=== PATIENT | male | born 1955 ===

== ENCOUNTER 2024-07-29 14:13 | Emergency (ER) | payer OTHER ==
[2024-07-29] MEDS ORDERED: NA CHLORIDE 0.9% 1,000 ML ONE ×2 (14:54→15:36)
[2024-07-29] MEDS ORDERED: ONDANSETRON 4 MG/2 ML VIAL ONE (14:54)
[2024-07-29 15:16] LABS: Absolute Basophils 0.1 K/uL (0-0.5); Absolute Eosinophils 0.1 K/uL (0-0.5); Absolute Lymphocytes (CBC) 2.1 K/uL (0.7-4.9); Absolute Monocytes 1.1 K/uL (0.1-1.3); Absolute Neutrophil 8.2 K/uL (1.8-8.0); Hematocrit 32.8 % (39.6-49.0); Hemoglobin 11.1 g/dL (13.6-17.9); Lymphocytes % 17.9 % (15.3-44.8); MCH 29.8 pg (27.0-35.0); MCHC 33.8 g/dL (32.0-36.0); MCV 88.4 fL (80-100); MPV 8.1 fL (7.6-11.3); Monocytes % 9.2 % (3.3-12.3); Neutrophils % 70.9 % (41.7-73.7); Platelets 460 thou/uL (152-406); RBC Red Blood Cell Count 3.71 M/uL (4.33-5.43)
[2024-07-29 15:22] LABS: Albumin 2.9 g/dL (3.4-5.0); Albumin/Globulin Ratio 0.6 (1.1-1.8); Anion Gap 13.6 mEq/L (5.0-15.0); Bilirubin Total 0.6 mg/dL (0.2-1.0); Globulin 4.5 g/dL (2.3-3.5); Magnesium 1.7 mg/dL (1.6-2.4); Potassium 4.6 mEq/L (3.5-5.1); Protein, Total 7.4 g/dL (6.4-8.2); Troponin High Sensitivity 6.7 pg/mL (<58.9)
--- NOTE | 2024-07-29 15:28 | RAD REPORT ---
EXAMINATION: ONE VIEW CHEST XR CLINICAL INDICATION: syncope TECHNIQUE: Frontal chest projection is submitted. Examination is limited by patient positioning and t echnique. COMPARISON: No prior exam. FINDINGS: Diffuse COPD is present. Opacity is present in the left hilar/suprahilar region which could represent a mass or infiltrate. Lungs otherwise clear. The heart is upper limit normal in size. CT chest may be useful for further workup.
[2024-07-29 15:46] LABS: PT Prothrombin Time 12.9 SECONDS (10-13.0); Protime INR 1.14
[2024-07-29] MEDS ORDERED: NA CHLORIDE 0.9% 50 ML ONE (15:57)
[2024-07-29] MEDS ORDERED: CEFTRIAXONE 1000 MG/VIAL ONE (15:57)
[2024-07-29] MEDS ORDERED: NA CHLORIDE 0.9% 250 ML ONE (15:57)
[2024-07-29] MEDS ORDERED: AZITHROMYCIN 500 MG INJ IVPB ONE (15:57)
[2024-07-29 16:03] LABS: PTT, Activated Partial Thromb 30.9 SECONDS (27.2-37.4)
--- NOTE | 2024-07-29 16:56 | RAD REPORT ---
EXAM: CT brain without contrast HISTORY: SYNCOPE COMPARISON: None TECHNIQUE: Multiple contiguous axial images were obtained and a CT of the brain without contrast. Sag ittal and coronal reformats were performed. One or more of the following dose reduction techniques were used: Automated exposure control, adjust ment of the mA and/or kV according to patient size, and/or iterative reconstruction. FINDINGS: No evidence of hydrocephalus, intracranial hemorrhage, or extra-axial fluid collection. Moderate brain atrophy with mild periventricular and deep white matter chronic microvascular ischemi c changes present. Vertebral atherosclerosis. No evidence of midline shift or areas of brain edema. The calvarium is intact. The visualized paranasal sinuses and mastoid air cells are essentially clear . IMPRESSION: No evidence of acute intracranial abnormality.
--- NOTE | 2024-07-29 17:08 | RAD REPORT ---
EXAM: CTA of the chest, abdomen and pelvis HISTORY: Chest pain and back pain syncope COMPARISON: None TECHNIQUE: Multiple contiguous axial images were obtained a CTA of the chest and abdomen with contras t per aortic dissection protocol. This involves 3D reconstructions, MIPs, volume rendered images and/or shaded surface rendering. One or more of the following dose reduction techniques were used: Au tomated exposure control, adjustment of the mA and/or kV according to patient size, and/or iterative reconstruction. Unless otherwise specified, incidental findings do not require dedicated im aging follow-up. Sagittal and coronal 3-D MIP reformats were performed. FINDINGS: Mild COPD is present. There is a thick-walled air and fluid collection in the medial left lung base m easuring 5 x 4 cm which may represent an cavitary mass or intrapulmonary abscess. Cavitary malignancy is favored, however. There is irregular left hilar lymph node present measuring 2 cm. No pulmonary embolism seen. Aortic arch is normal caliber. There is a large irregular abdominal aortic aneurysm measuring 11-12 cm in length and up to 10 cm in transverse dimension. The SMA, renal arteries, NATA appear to originate from the aneurysm. No active contrast leakage is seen from the aneurysm. 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 No evidence of aortic dissection. No acute solid organ abnormality. No significant free fluid, free air or bowel obstruction. IMPRESSION: Very large abdominal aortic aneurysm as detailed.Consultation with vascular specialist recommended. 5 x 4 cm thick-walled air and fluid containing lesion in the left lung base could represent cavitary mass or secondary to infection/intrapulmonary abscess. Malignancy is favored, however. There is a 2 cm irregular left hilar lymph node. The findings were communicated with Dr. Buckley at 07/29/2024 5:06 PM by telephone.
--- NOTE | 2024-07-29 17:11 | ER ---
Nurse's Notes [facility] Name: Carroll Canseco Age: 69 yrs Sex: Male : 1955 Arrival Date: 07/29/2024 Time: 14:13 Bed 13 Private MD: Diagnosis: Syncope;Pneumonia due to other specified infectious organisms;Abdominal aortic aneurysm, without rupture;Dizziness and giddiness Presentation: 07/29 14:22 Chief complaint: Patient states: really dizzy since 0900 , he fell when he tried to get iw up, he feels like he is going black out sometimes, denies n/v/d , no fever or chills, feels cold, he has had no appetite for 2-3 weeks not eating much. Coronavirus screen: At this time, the client does not indicate any symptoms associated with coronavirus-19. Ebola Screen: No symptoms or risks identified at this time. 14:22 Method Of Arrival: Wheelchair iw 14:22 Acuity: [place] 2 iw 14:46 Onset of symptoms is unknown. ap3 14:46 Initial Sepsis Screen: Does the patient meet any 2 criteria? No. Patient's initial ap3 sepsis screen is negative. Does the patient have a suspected source of infection? No. Patient's initial sepsis screen is negative. Risk Assessment: Do you want to hurt yourself or someone else? Patient reports no desire to harm self or others. Historical: - Allergies: 18:07 No Known Allergies; ap3 - PMHx: 14:36 Cerebrovascular accident; Hypertensive disorder; iw - Immunization history:: Adult Immunizations up to date. - Infectious Disease History:: Denies. - Social history:: Smoking status: unknown. Screenin:43 [facility] ED Fall Risk Assessment (Adult) History of falling in the last 3 months, ap3 including since admission Yes- fall prone (multiple falls) (3 pts) Confusion or Disorientation No (0 pts) Intoxicated or Sedated No (0 pts) Impaired Gait No (0 pts) Mobility Assist Device Used No (0 pt) Altered Elimination No (0 pt) Score/Fall Risk Level 3 or more points = High Risk Oriented to surroundings, Maintained a safe environment, Educated pt \T\ family on fall prevention, incl call for assistance when getting out of bed, Provided non-skid footwear, Hourly rounding (assess needs \T\ fall precautionary measures) done, Apply high fall risk patient identification: yellow non skid footwear/ fall signage, Remained w/in arm's length of patient and in sight while toileting, Offered frequent toileting (1:1 observation), Remained with patient while ambulating. Abuse screen: Denies threats or abuse. Nutritional screening: No deficits noted. Tuberculosis screening: No symptoms or risk factors identified. Assessment: 14:45 General: Appears uncomfortable, Behavior is cooperative, appropriate for age. Pain: ap3 Complains of pain in low back area Is chronic. Neuro: Level of Consciousness is awake, alert, obeys commands, Oriented to person, place, time, situation, Appropriate for age. Neuro: Reports a syncopal episode weakness. Cardiovascular: Patient's skin is warm and dry. Respiratory: Airway is patent Respiratory effort is even, unlabored, Respiratory pattern is regular, symmetrical. 17:15 Reassessment: Patient and/or family updated on plan of care and expected duration. Pain ap3 level reassessed. Patient is alert, oriented x 3, equal unlabored respirations, skin warm/dry/pink. 17:42 General: patient states he wishes to not be resuscitated or intubated. provider aa5 notified. . 17:50 General: report given to emily moore at [facility]. ap3 Vital Signs: 14:22 Pulse 80; Resp 19; Pulse Ox 95% on R/A; Weight 58.97 kg; Height 5 ft. 11 in. ; iw 14:44 BP 114 / 77; Pulse 73; Resp 19; Pulse Ox 97% on R/A; ap3 15:08 BP 113 / 86; Pulse 72; Pulse Ox 97% on R/A; ap3 15:37 BP 112 / 97; Pulse 67; Resp 18; Pulse Ox 96% on R/A; ap3 15:46 BP 104 / 67; Pulse 67; Resp 18; ap3 16:35 BP 121 / 90; Pulse 69; Resp 17; Temp 98.1; Pulse Ox 100% on R/A; ap3 18:08 BP 126 / 87; Pulse 73; Resp 17; Pulse Ox 100% on R/A; ap3 14:22 Body Mass Index 18.13 (58.97 kg, 180.34 cm) iw ED Course: 14:16 Patient arrived in ED. gl 14:19 Nav Cavazos PA is PHCP. cp 14:19 Tenzin Buckley MD is Attending Physician. cp 14:24 Triage completed. iw 14:35 Arm band placed on. iw 14:42 Beverley Zacarias, RN is Primary Nurse. ap3 14:43 Patient has correct armband on for positive identification. Placed in gown. Call light ap3 in reach. Side rails up X2. Client placed on continuous cardiac and pulse oximetry monitoring. NIBP monitoring applied. hand zipper trimmer on. Pulse ox on. NIBP on. Door closed. Noise minimized. Warm blanket given. 14:43 EKG done, by ED staff, reviewed by Nav PRADO. ap3 14:46 Provided Education on: fall risk education . ap3 15:14 Chest Single View XRAY In Process Unspecified. EDMS 16:50 CT Head Brain wo Cont In Process Unspecified. EDMS 16:50 CT Aorta for Dissection In Process Unspecified. EDMS 17:07 1707 called [facility] for transfer talked to Brigitte Echavarria. 1731 Dr. Ricky Green accepted pt 1731 Brigitte Echavarria admin approval to [id number] report [phone]. 1738 Called [facility] talked to Yoseph. will be here in 20 minutes. 18:06 No provider procedures requiring assistance completed. Patient transferred, IV remains ap3 in place. Administered Medications: 15:00 Drug: NS 0.9% IV 1000 ml IV at 1000 ml once; to be given as a bolus over 60 minutes ap3 Route: IV; Rate: 1000 ml; Site: right forearm; 15:45 Follow up: IV Status: Completed infusion; IV Intake: 1000ml ap3 15:00 Not Given (Patient Refused): ondansetron 4 mg IVP once; over 2 minutes ap3 15:45 Drug: NS 0.9% IV (30 ml/kg) 30 ml/kg IV at bolus once; Sepsis Protocol; give over 90 ap3 min for total 1770 ml Route: IV; Rate: bolus; Site: left forearm; 16:41 Follow up: IV Status: Completed infusion; IV Intake: 800ml ap3 16:25 Drug: Rocephin IV 1 grams IV at calculated rate once; Given slow IV push per pharmacy ap3 instructions Route: IV; Rate: calculated rate; Site: right forearm; 16:41 Follow up: IV Status: Completed infusion; IV Intake: 50ml ap3 18:05 Not Given (changed to PO per providerr): [id number] mg IVPB once over 1 hrs; mix in ap3 250 mL NS 18:05 Drug: AZITHromycin PO 500 mg PO once Route: PO; ap3 18:05 Follow up: Response: No adverse reaction ap3 Medication: 14:46 VIS not applicable for this client. ap3 Point of Care Testing: Blood Glucose: 14:35 Blood Glucose: 89 mg/dL; iw Ranges: Intake: 15:45 IV: 1000ml; Total: 1000ml. ap3 16:41 IV: 800ml; Total: 1800ml. ap3 16:41 IV: 50ml; Total: 1850ml. ap3 Outcome: 17:10 ER care complete, transfer ordered by . 18:06 Transferred by helicopter to [facility], ap3 18:06 Condition: stable 18:06 Instructed on the need for transfer, 18:09 Patient left the ED. ap3 Signatures: Dispatcher [employer] EDMS Norma Multani Irene, RN RN iw Gia Cruz RN RN aa5 Nav Cavazos PA PA Beverley Sullivan RN RN ap3 Yen Coats, Reg Reg gl
--- NOTE | 2024-07-29 17:11 | EDPHYS ---
Physician Documentation [facility] Name: Carroll Canseco Age: 69 yrs Sex: Male : 1955 Arrival Date: 07/29/2024 Time: 14:13 Bed 13 Private MD: ED Physician Tenzin Buckley HPI: 07/29 14:30 This 69 yrs old Male presents to ER via Wheelchair with complaints of Dizziness, Passed cp Out Prior To Arrival. 14:30 The patient presents with dizziness, feeling faint, lightheadedness. Onset: The cp symptoms/episode began/occurred gradually, 1 month(s) ago. Associated signs and symptoms: Pertinent positives: confusion, near-syncope, syncope, Pertinent negatives: abdominal pain, chest pain, headache. Severity of symptoms: in the emergency department the symptoms have improved mildly. Patient's baseline: The patient has a previous history of CVA. Historical: - Allergies: 18:07 No Known Allergies; ap3 - PMHx: 14:36 Cerebrovascular accident; Hypertensive disorder; iw - Immunization history:: Adult Immunizations up to date. - Infectious Disease History:: Denies. - Social history:: Smoking status: unknown. ROS: 14:33 Constitutional: Positive for weight loss, Negative for body aches, chills, fever, cp 14:33 Eyes: Negative for injury, pain, redness, and discharge, cp 14:33 ENT: Negative for drainage from ear(s), ear pain, sore throat, difficulty swallowing, difficulty handling secretions, 14:33 Cardiovascular: Negative for chest pain, edema, palpitations, 14:33 Respiratory: Negative for cough, shortness of breath, wheezing, 14:33 Abdomen/GI: Positive for nausea, anorexia, Negative for abdominal pain, vomiting, diarrhea, constipation, black/tarry stool, rectal bleeding, 14:33 Back: Positive for low back pain, cp 14:33 : Negative for urinary symptoms, testicular pain cp 14:33 Neuro: Positive for dizziness, syncope, near syncope, Negative for seizure activity, 14:33 All other systems are negative, Exam: 14:37 Constitutional: The patient appears in no acute distress, alert, awake, cp non-diaphoretic, non-toxic, well developed, well nourished, 14:37 Head/Face: Normocephalic, atraumatic. cp 14:37 Eyes: Periorbital structures: appear normal, Pupils: equal, round, and reactive to cp light and accomodation, Extraocular movements: intact throughout, Conjunctiva: normal, no exudate, no injection, Sclera: no appreciated abnormality, Lids and lashes: appear normal, bilaterally, 14:37 ENT: External ear(s): are unremarkable, Nose: is normal, Mouth: Lips: moist, Oral mucosa: moist, Posterior pharynx: Airway: no evidence of obstruction, patent, 14:37 Neck: ROM/movement: is normal, is supple, without pain, no range of motions limitations, no nuchal rigidity, 14:37 Chest/axilla: Inspection: normal, 14:37 Cardiovascular: Rate: normal, Rhythm: regular, Edema: is not appreciated, JVD: is not appreciated, 14:37 Respiratory: the patient does not display signs of respiratory distress, Respirations: normal, no use of accessory muscles, no retractions, labored breathing, is not present, Breath sounds: decreased breath sounds, that are mild, throughout, 14:37 Abdomen/GI: Inspection: abdomen appears normal, Palpation: abdomen is soft and non-tender, in all quadrants, 14:37 Back: pain, that is moderate, low back, ROM is normal, 14:37 Skin: cellulitis, is not appreciated, no rash present. 14:37 Neuro: Orientation: to person, situation, day of week. Mentation: able to follow commands, slow to respond, Cerebellar function: Romberg testing is negative, normal finger to nose testing, heel to aponte testing is normal, Motor: moves all fours, no focal deficits, Sensation: no obvious gross deficits, 14:38 ECG was reviewed by the Attending Physician. cp Vital Signs: 14:22 Pulse 80; Resp 19; Pulse Ox 95% on R/A; Weight 58.97 kg; Height 5 ft. 11 in. ; iw 14:44 BP 114 / 77; Pulse 73; Resp 19; Pulse Ox 97% on R/A; ap3 15:08 BP 113 / 86; Pulse 72; Pulse Ox 97% on R/A; ap3 15:37 BP 112 / 97; Pulse 67; Resp 18; Pulse Ox 96% on R/A; ap3 15:46 BP 104 / 67; Pulse 67; Resp 18; ap3 16:35 BP 121 / 90; Pulse 69; Resp 17; Temp 98.1; Pulse Ox 100% on R/A; ap3 18:08 BP 126 / 87; Pulse 73; Resp 17; Pulse Ox 100% on R/A; ap3 14:22 Body Mass Index 18.13 (58.97 kg, 180.34 cm) iw MDM: 14:27 Medical Screening Exam initiated cp 15:00 Differential diagnosis: cardiac arrhythmia, CVA, GI bleed, hypovolemia, idiopathic cp dizziness, sepsis, TIA. 16:22 Post IV fluid administration reassessment for Sepsis: Client prescribed 30 mL/kg IVF. cp Sepsis focused reassessment complete. Focused Assessment performed: July 29, 2024 at 16:23 Heart: Regular rate/rhythm noted. Lungs: Noted to be clear bilaterally. Current vital signs reviewed: Yes. Neuro: Neurological examination improved from previous exam. 17:25 Data reviewed: vital signs, nurses notes, lab test result(s), EKG, radiologic studies, cp CT scan, plain films, I have discussed the patient's presentation/case with the attending Emergency Department Physician; and as a result, I will transfer patient. 17:25 Care significantly affected by the following chronic conditions: Hypertension. Response cp to treatment: the patient's symptoms have mildly improved after treatment. 17:27 ED course: consult with vascular at [facility], DR Dos Santos. cp 17:34 Management of patient was discussed with the following: automotive designer at [facility], cp DR Medina, will accept patient as transfer after discussion. I considered the following discharge prescriptions or medication management in the emergency department Medications were administered in the Emergency Department. See MAR. Independent interpretation of the following test(s) in the Emergency Department EKG: See my EKG interpretation above. 07/29 14:43 Order name: Glucose, Ancillary Testing; Complete Time: 15:26 EDMS 07/29 14:44 Order name: Blood Culture Adult (2) cp 07/29 14:44 Order name: CBC with Diff; Complete Time: 15:26 cp 07/29 15:26 Interpretation: Normal except: WBC 11.60; RBC 3.71; HGB 11.1; HCT 32.8; PLT 460; NEUT A cp 8.2. 07/29 14:44 Order name: CMP; Complete Time: 15:26 cp 07/29 15:27 Interpretation: Normal except: NA 129; CL 97; CRE 1.37; GFR 56; ALB 2.9; GLOB 4.5; A/G cp 0.6. 07/29 14:44 Order name: Lactate w/ 2H reflex if indic.; Complete Time: 15:47 cp 07/29 14:44 Order name: Protime (+inr); Complete Time: 16:59 cp 07/29 14:44 Order name: Ptt, Activated; Complete Time: 16:59 cp 07/29 14:44 Order name: Urinalysis w/ reflexes; Complete Time: 17:30 cp 07/29 14:44 Order name: Troponin High Sensitivity; Complete Time: 15:26 cp 07/29 14:44 Order name: Magnesium; Complete Time: 15:26 cp 07/29 15:33 Order name: Ghost Lactate-NO COLLECT Timer; Complete Time: 17:30 EDMS 07/29 14:44 Order name: Chest Single View XRAY; Complete Time: 15:47 cp 07/29 15:48 Order name: CT Head Brain wo Cont; Complete Time: 16:59 cp 07/29 17:00 Interpretation: Report reviewed. cp 07/29 15:50 Order name: CT Aorta for Dissection; Complete Time: 17:18 cp 07/29 14:44 Order name: EKG; Complete Time: 14:45 cp 07/29 14:27 Order name: Blood Pressure Recheck; Complete Time: 14:43 cp 07/29 14:44 Order name: Accucheck; Complete Time: 14:47 cp 07/29 14:44 Order name: Cardiac monitoring; Complete Time: 14:47 cp 07/29 14:44 Order name: EKG - Nurse/Tech; Complete Time: 14:47 cp 07/29 14:44 Order name: IV Saline Lock - Large Bore; Complete Time: 14:47 cp 07/29 14:44 Order name: Labs collected and sent; Complete Time: 15:01 cp 07/29 14:44 Order name: O2 Per Protocol; Complete Time: 14:47 cp 07/29 14:44 Order name: O2 Sat Monitoring; Complete Time: 14:47 cp 07/29 14:44 Order name: Vital Signs; Complete Time: 14:47 cp EC:38 Rate is 74 beats/min. Rhythm is regular. [place] interval is normal. QRS interval is normal. cp QT interval is normal. T waves are Inverted in lead aVR. Interpreted by me. Reviewed by me. Administered Medications: 15:00 Drug: NS 0.9% IV 1000 ml IV at 1000 ml once; to be given as a bolus over 60 minutes ap3 Route: IV; Rate: 1000 ml; Site: right forearm; 15:45 Follow up: IV Status: Completed infusion; IV Intake: 1000ml ap3 15:00 Not Given (Patient Refused): ondansetron 4 mg IVP once; over 2 minutes ap3 15:45 Drug: NS 0.9% IV (30 ml/kg) 30 ml/kg IV at bolus once; Sepsis Protocol; give over 90 ap3 min for total 1770 ml Route: IV; Rate: bolus; Site: left forearm; 16:41 Follow up: IV Status: Completed infusion; IV Intake: 800ml ap3 16:25 Drug: Rocephin IV 1 grams IV at calculated rate once; Given slow IV push per pharmacy ap3 instructions Route: IV; Rate: calculated rate; Site: right forearm; 16:41 Follow up: IV Status: Completed infusion; IV Intake: 50ml ap3 18:05 Not Given (changed to PO per providerr): [id number] mg IVPB once over 1 hrs; mix in ap3 250 mL NS 18:05 Drug: AZITHromycin PO 500 mg PO once Route: PO; ap3 18:05 Follow up: Response: No adverse reaction ap3 Point of Care Testing: Blood Glucose: 14:35 Blood Glucose: 89 mg/dL; iw Ranges: Critical Glucose Levels:Adult <50 mg/dl or >400 mg/dl <40 mg/dl or >180 mg/dl Disposition Summary: 07/29/24 17:10 Transfer Ordered Notes: Transfer Location: [facility] cp Reason: Higher level of care cp Condition: Stable cp Problem: new cp Symptoms: have improved cp Accepting Physician: DR Esquivel(07/29/24 18:09) ap3 Diagnosis - Syncope cp - Pneumonia due to other specified infectious organisms cp - Abdominal aortic aneurysm, without rupture cp - Dizziness and giddiness cp Discharge Instructions: - Discharge Summary Sheet ap3 Forms: - Medication Reconciliation Form cp - SBAR form ap3 Critical care time excluding procedures: 07/30 14:37 Critical care time: Bedside Care: 10 minutes, Consultation: 35 minutes. Total time: 45 cp minutes Signatures: Dispatcher [employer] EDSondra Miramontes, RN RN Gia Adrian RN RN aa5 Nav Cavazos PA PA cp Prokisch, Amanda, RN RN ap3 Corrections: (The following items were deleted from the chart) 07/29 17:26 14:47 Orthostatics ordered. cp aa5 17:34 17:10 doctor cp cp 17:45 17:45 TYPE AND SCREEN+[id number].BRZ ordered. EDMS EDMS 18:09 17:34 DR Esquivel cp ap3
[2024-07-29 17:19] LABS: Specific Gravity 1.011 (1.005-1.030); Urine Bilirubin NEGATIVE (Negative); Urine Blood Negative (Negative); Urine Clarity Clear (Clear); Urine Color Light-Yellow (Yellow); Urine Glucose NEGATIVE (Negative); Urine Ketones TRACE (Negative); Urine Microscopic Reflex YN NO UMIC; Urine Nitrite NEGATIVE (Negative); Urine Protein NEGATIVE (Negative); Urine Urobilinogen Normal (Normal)
[2024-07-29] MEDS ORDERED: AZITHROMYCIN 250 MG TAB ONE (17:20)
[2024-07-29 18:20] VITALS: TEMP 98.1; O2SAT 100
[2024-07-29 18:21] VITALS: BP 126/87
== END 2024-07-29 18:09 | disposition short-term general hospital (02) ==
LOC: ER 14:13
DX: R55 Syncope and collapse (principal); J16.8 Pneumonia due to other specified infectious organisms; I71.40 Abdominal aortic aneurysm, without rupture, unspecified; R42 Dizziness and giddiness; I10 Essential (primary) hypertension; Z86.73 Personal history of transient ischemic attack (TIA), and cerebral infarction without residual deficits
CPT/HCPCS: 93005; 87040 ×2; 85025; 36415; 83735; 85610; 82947; 83605; 85730; 81003; 84484; 80053; 70450; 71275; 74175; 71045; J2405; J7050; J7030 ×2; J0696